=== PATIENT | female | born 1990 | race American Indian/Alaskan Native ===

== ENCOUNTER 2017-01-04 07:43 | Emergency (ER) | payer MEDICAID ==
[2017-01-04] MEDS ORDERED: TYLENOL ONE (09:48)
[2017-01-04] MEDS ORDERED: AUGMENTIN 875 MG PO ONE (10:33)
[2017-01-04] MEDS ORDERED: TYLENOL/CODEINE PO ONE (10:33)
--- NOTE | 2017-01-04 10:34 | Emergency Department Report ---
HPI - General Chief Complaint: Fever Time Seen by Provider: 01/04/17 10:00 - HPI HPI: Patient is a 26-year-old female with no prior medical history who presents to ED complaining of frontal, throbbing, aching headache 1 day. Patient admits associated symptoms as cough, chills, sweating. States last menstrual period as December 14, 2016 and states she has not had no course of the past 2 months She denies nausea/vomiting/abdominal pain/chest pains or shortness of breath ED Past Medical Hx - Past Medical History Previous Medical History?: No - Surgical History Past Surgical History?: No - Social History Smoking Status: Heavy Tobacco Smoker Substance Use Type: Marijuana - Medications Home Medications: Home Medications Medication Instructions Recorded Confirmed Last Taken Type Ibuprofen [Motrin 800 MG tab] 800 mg PO Q8HR PRN #30 tablet 01/04/17 Unknown Rx Sulfamethoxazole/Trimethoprim 1 each PO BID #14 tablet 01/04/17 Unknown Rx [Bactrim DS TAB] ED Review of Systems ROS: Stated complaint: HOT/COLD FLASHES/BONES HURT Other details as noted in HPI Constitutional: denies: chills, fever Eyes: denies: eye pain, eye discharge, vision change ENT: denies: ear pain, throat pain Respiratory: cough. denies: shortness of breath, wheezing Cardiovascular: denies: chest pain, palpitations Endocrine: no symptoms reported, excessive sweating Gastrointestinal: denies: abdominal pain, nausea, diarrhea Genitourinary: denies: urgency, dysuria, discharge Musculoskeletal: myalgia. denies: back pain, joint swelling, arthralgia Skin: denies: rash, lesions Neurological: denies: headache, weakness, paresthesias Psychiatric: denies: anxiety, depression Hematological/Lymphatic: denies: easy bleeding, easy bruising Physical Exam - Physical Exam Vital Signs: Vital Signs 01/04/17 01/04/17 07:58 08:01 Temperature 99.1 F Pulse Rate 108 H Respiratory 19 Rate Blood Pressure 140/75 O2 Sat by Pulse 99 99 Oximetry Physical Exam: GENERAL: Alert and oriented x3, no apparent distress, Normal Gait, atraumatic. HEAD: Head is normocephalic and a-traumatic. EYES: Extra ocular muscles are intact. Pupils are equal, round, and reactive to light and accommodation. EARS: symetrical, atraumatic, non tender, ear canal clear and moderate cerumen, tympanic membrance non inflamed. Serous fluid seen behind tympanic membrane bilaterally ,gross auditory nml bilaterally. NOSE: Nose symetrical, Nontender,Nares appeared normal. Maxillary sinus tenderness to palpation MOUTH:Mouth is well hydrated and without lesions. Tonsils nonerythematous or swollen, Uvula midline, Tongue not elevated. Mucous membranes are moist. Posterior pharynx clear, no exudate or lesions. Patent airways. NECK: Supple. Non edematous, No carotid bruits. No lymphadenopathy or thyromegaly. No C-spine tenderness LUNGS: Symetrical with respiration, No wheezing, no rales or crackles, CTAB. HEART: S1, S2 present, regular rate and rhythm without murmur, no rubs, no gallops. Non tender to palpation EXTREMITIES/MUSCULOSKELETAL: No cyanosis, clubbing, rash, lesions or edema. Full ROM bilaterally. UE/LE Pulses 2+ bilaterally. LE and UE 5+ strength bilat. NEUROLOGIC: The patient is cooperative with no focal neurologic deficits. Cranial nerves II through XII are grossly intact. Normal speech. PSYCHIATRIC: Mood is congruent with affect, denies suicidal or homicidal ideations. SKIN: Warm and dry, No lesions, No ulceration or induration present. ED Course Vital Signs 01/04/17 01/04/17 07:58 08:01 Temperature 99.1 F Pulse Rate 108 H Respiratory 19 Rate Blood Pressure 140/75 O2 Sat by Pulse 99 99 Oximetry ED Medical Decision Making - Medical Decision Making 26-year-old female presents with Urinary tract infection ED course: Patient was medicated in ED with Tylenol, Augmentin, and Tylen/ codeine Urinalysis, UPT ordered. Urinalysis positive for bacteria, UPT negative Discussed this findings with the patient. Discussed the patient take antibiotics as prescribed Discussed patient follow up with primary care physician Vital signs are normal patient is in no acute distress Critical care attestation.: If time is entered above; I have spent that time in minutes in the direct care of this critically ill patient, excluding procedure time. ED Disposition Clinical Impression: UTI (urinary tract infection) Qualifiers: Urinary tract infection type: acute cystitis Hematuria presence: without hematuria Qualified Code(s): N30.00 - Acute cystitis without hematuria Disposition: TO HOME OR SELFCARE Is pt being admited?: No Does the pt Need Aspirin: No Condition: Stable Instructions: Urinary Tract Infection in Women (ED) Prescriptions: Ibuprofen [Motrin 800 MG tab] 800 mg PO Q8HR PRN #30 tablet PRN Reason: Pain Sulfamethoxazole/Trimethoprim [Bactrim DS TAB] 1 each PO BID #14 tablet Referrals: MARIO PHILLIPS MD [Primary Care Provider] - 3-5 Days AKUA PAULINO MD [Referring] - 3-5 Days [facility] [Outside] - 3-[address] [facility] [Outside] - 3-5 Days [facility] [Outside] - 3-5 Days Forms: Work/School Release Form(ED) Time of Disposition: 13:00
[2017-01-04 12:32] LABS: Bacteria,Urine 1+ /HPF (Negative); Bilirubin,Urine NEG (Negative); Blood,Urine SM (Negative); Ketones,Urine NEG (Negative); Leukocyte Esterase,Urine NEG (Negative); Mucus,Urine 2+ /HPF; Nitrite,Urine NEG (Negative)
[2017-01-04 13:22] VITALS: BP 129/71
== END 2017-01-04 13:21 | disposition home or self-care (01) ==
LOC: ED 07:43
DX: N30.00 Acute cystitis without hematuria (principal); F17.200 Nicotine dependence, unspecified, uncomplicated; F12.10 Cannabis abuse, uncomplicated
CPT/HCPCS: 81001; 81025; 99283

== ENCOUNTER 2017-01-05 21:05 | Emergency (ER) | payer MEDICAID ==
[2017-01-05 21:49] LABS: Hematocrit 40.4 % (30.3-42.9); Hemoglobin 13.4 gm/dl (10.1-14.3); Mean Corpuscular HGB Conc 33 % (30-34); Mean Corpuscular Hemoglobin 31 pg (28-32); Mean Corpuscular Volume 93 fl (79-97); Platelet Count 132 K/mm3 (140-440); Red Blood Count 4.36 M/mm3 (3.65-5.03)
[2017-01-05 22:05] LABS: Anion Gap 19 mmol/L; BUN/Creatinine Ratio 11.66; Blood Urea Nitrogen 7 mg/dL (7-17); Calcium 9.3 mg/dL (8.4-10.2); Carbon Dioxide 21 mmol/L (22-30); Chloride 102.3 mmol/L (98-107); Glucose 97 mg/dL (65-100); Potassium 4.2 mmol/L (3.6-5.0); Sodium 138 mmol/L (137-145)
[2017-01-06 00:38] LABS: Bilirubin,Urine NEG (Negative); Blood,Urine SM (Negative); Ketones,Urine 20 mg/dL (Negative); Leukocyte Esterase,Urine NEG (Negative); Mucus,Urine FEW /HPF; Nitrite,Urine NEG (Negative)
[2017-01-06] MEDS ORDERED: TYLENOL PO ONE (03:40)
[2017-01-06] MEDS ORDERED: TYLENOL ONE (03:44)
--- NOTE | 2017-01-06 06:04 | Cat Scan Report ---
FINAL REPORT EXAM: CT HEAD/BRAIN W/O CONTRAST. HISTORY: HEADACHE. TECHNIQUE: Unenhanced axial CT images of the brain were obtained. No prior studies are available for comparison. FINDINGS: The cortical sulci and ventricles are within normal limits for patient's age. There is no extra-axial fluid collection, mass, mass effect, midline shift, hydrocephalus, or acute intracranial hemorrhage. The visualized paranasal sinuses and mastoid air cells are clear. There is no skull fracture or other osseous abnormality. The visualized orbits and globes are grossly unremarkable. IMPRESSION: No acute intracranial abnormality.
--- NOTE | 2017-01-06 07:32 | XRay Report ---
ROUTINE CHEST, TWO VIEWS: HISTORY: Cough, pain. Subtle infiltrate is identified in the lingula. The right lung is clear. No pleural effusion or pneumothorax. Normal heart and mediastinal structures. Normal bony thorax. IMPRESSION: Lingular pneumonia.
[2017-01-06] MEDS ORDERED: ROCEPHIN/NS 1 GM/50 ML 1 GM/50 ML BAG IV ONE (10:40)
[2017-01-06] MEDS ORDERED: TORADOL IV ONE (10:40)
[2017-01-06] MEDS ORDERED: ZOFRAN IV ONE ×2 (10:41→14:37)
[2017-01-06] MEDS ORDERED: MORPHINE IV ONE ×2 (10:41→14:36)
[2017-01-06] MEDS ORDERED: D5NS 1,000 ML IV SCH (11:00)
[2017-01-06] MEDS ORDERED: ZITHROMAX 500 MG in NACL 0.9% 250ML 250 ML IV ONE (11:00)
--- NOTE | 2017-01-06 11:29 | Emergency Department Report ---
ED Fever HPI - General Chief Complaint: Abdominal Pain Stated Complaint: DIZZINESS/WEAK Time Seen by Provider: 01/06/17 10:15 Source: patient Exam Limitations: no limitations - History of Present Illness Initial Comments: 26 year old female with a Past medical history presents to the hospital with fever and myalgias 2-3 days. Patient was seen here 2 days ago for the same patient complains of headache that moves around different parts of her head, sharp, and constant. Patient also complains of generalized body aches, weakness , and fatigue. Patient developed vomiting 4 since yesterday and mild diarrhea. Patient was seen here on the and diagnosed with the UTI and viral syndrome and placed on Tamiflu, ibuprofen, and Bactrim. Patient does not feel any better and therefore returned ED Review of Systems ROS: Stated complaint: DIZZINESS/WEAK Other details as noted in HPI Comment: All other systems reviewed and negative Other: Constitutional:as per hpi Eyes: No eye pain visual changes or discharge ENT: No ear pain or throat pain Neck: Denies pain Respiratory: Occasional cough, no shortness of breath Cardiovascular: Denies chest pain, palpitations, syncope GI: Denies abdominal pain : Denies dysuria Musculoskeletal: Arthralgias Skin: Denies rash Neurologic: + treadwell, no focal weakness Psychiatric: Denies suicidal ideation, hallucinations Hematological/lymphatic: Denies easy bruising, lymphadenopathy ED Past Medical Hx - Social History Smoking Status: Current Every Day Smoker Substance Use Type: None - Medications Home Medications: Home Medications Medication Instructions Recorded Confirmed Last Taken Type Ibuprofen [Motrin 800 MG tab] 800 mg PO Q8HR PRN #30 tablet 01/04/17 Unknown Rx Oseltamivir [Tamiflu] 75 mg PO BID #8 cap 01/04/17 Unknown Rx Sulfamethoxazole/Trimethoprim 1 each PO BID #14 tablet 01/04/17 Unknown Rx [Bactrim DS TAB] HYDROcodone/APAP 5-325 [[place] 1 each PO Q6HR PRN #20 tablet 01/06/17 Unknown Rx 5/325] Levofloxacin [Levaquin] 750 mg PO QDAY #7 tablet 01/06/17 Unknown Rx Promethazine [Phenergan TAB] 25 mg PO Q6HR PRN #20 tab 01/06/17 Unknown Rx ED Physical Exam - General Limitations: No Limitations - Other Other exam information: General: No limitations, patient is alert in no acute distress Head exam: Atraumatic, normocephalic Eyes exam: Normal appearance, pupils equal reactive to light, extraocular movements intact ENT: Moist mucous membrane, normal oropharynx Neck exam: Normal inspection, full range of motion, no meningismus nontender Respiratory exam: Clear to auscultation bilateral, no wheezes, rales, crackles Cardiovascular: Normal rate and rhythm, normal heart sounds Abdomen: Soft, nondistended, and nontender, with normal bowel sounds, no rebound, or guarding Extremity: Full range of motion normal inspection no deformity, no calf tenderness or edema Back: Normal Inspection, full range of motion, no tenderness Neurologic: Alert, oriented x3, cranial nerves intact, no motor or sensory deficit Psychiatric: normal affect, normal mood Skin: Warm, dry, intact ED Course Vital Signs 01/05/17 01/05/17 01/06/17 21:24 21:32 03:37 Temperature 98.4 F 98.4 F 99.3 F Pulse Rate 99 H 99 H 103 H Respiratory 18 18 20 Rate Blood Pressure 119/78 124/73 Blood Pressure 119/78 [Left] O2 Sat by Pulse 99 99 99 Oximetry 01/06/17 01/06/17 06:35 14:19 Temperature 98.4 F 98.6 F Pulse Rate 69 79 Respiratory 16 18 Rate Blood Pressure Blood Pressure 114/62 110/68 [Left] O2 Sat by Pulse 100 100 Oximetry - Reevaluation(s) Reevaluation #1: 01/06/17 11:28 Rocephin, azithromycin, D5NS, Toradol, morphine, and Zofran initiated Reevaluation #2: 01/06/17 14:37 Patient reports feeling better but still has a persistent headache. Additional Dilaudid 0.5 and Zofran IV ordered prior to discharge ED Medical Decision Making - Lab Data Result diagrams: 01/05/17 21:41 01/05/17 21:41 Lab Results 01/05/17 01/05/17 01/05/17 Range/Units 21:41 21:41 23:53 WBC 13.0 H (4.5-11.0) K/mm3 RBC 4.36 (3.65-5.03) M/mm3 Hgb 13.4 (10.1-14.3) gm/dl Hct 40.4 (30.3-42.9) % MCV 93 (79-97) fl MCH 31 (28-32) pg MCHC 33 (30-34) % RDW 13.0 L (13.2-15.2) % Plt Count 132 L (140-440) K/mm3 Sodium 138 (137-145) mmol/L Potassium 4.2 (3.6-5.0) mmol/L Chloride 102.3 (98-107) mmol/L Carbon Dioxide 21 L (22-30) mmol/L Anion Gap 19 mmol/L BUN 7 (7-17) mg/dL Creatinine 0.6 L (0.7-1.2) mg/dL Estimated GFR > 60 ml/min BUN/Creatinine Ratio 11.66 % Glucose 97 (65-100) mg/dL Calcium 9.3 (8.4-10.2) mg/dL Urine Color Yellow (Yellow) Urine Turbidity Clear (Clear) Urine pH 7.0 (5.0-7.0) Ur Specific [place] 1.017 (1.003-1.030) Urine Protein 100 mg/dl (Negative) mg/dL Urine Glucose (UA) Neg (Negative) mg/dL Urine Ketones 20 (Negative) mg/dL Urine Blood Sm (Negative) Urine Nitrite Neg (Negative) Ur Reducing Substances Not Reportable Urine Bilirubin Neg (Negative) Urine Ictotest Not Reportable Urine Urobilinogen 4.0 (<2.0) mg/dL Ur Leukocyte Esterase Neg (Negative) Urine WBC (Auto) 5.0 (0.0-6.0) /HPF Urine RBC (Auto) 40.0 (0.0-6.0) /HPF U Epithel Cells (Auto) 1.0 (0-13.0) /HPF Urine Mucus Few /HPF Urine HCG, Qual Negative (Negative) Influenza negative - EKG Data -: EKG Interpreted by Pa - Radiology Data Radiology results: report reviewed (chest x-ray: lingular infiltrate) - Medical Decision Making Patient had mild dehydration as evident by urine ketosis. Symptoms improved with ED treatment. X-ray reveals left lingual infiltrate. Patient without signs of hypoxia, tachycardia after treatment, or hypotension. Will be discharged with Levaquin and discontinue Bactrim - Differential Diagnosis pneumonia, viral syndrome, UTI Critical Care Time: No Critical care attestation.: If time is entered above; I have spent that time in minutes in the direct care of this critically ill patient, excluding procedure time. ED Disposition Clinical Impression: Left lower lobe pneumonia, Gastroenteritis Disposition: DC- TO HOME OR SELFCARE Is pt being admited?: No Does the pt Need Aspirin: No Condition: Stable Instructions: Community-acquired Pneumonia (ED) Additional Instructions: Take the medication as prescribed. Return is symptoms worsen Prescriptions: HYDROcodone/APAP 5-325 [[place]arden 5/325] 1 each PO Q6HR PRN #20 tablet PRN Reason: Pain Levofloxacin [Levaquin] 750 mg PO QDAY #7 tablet Promethazine [Phenergan TAB] 25 mg PO Q6HR PRN #20 tab PRN Reason: Nausea Referrals: OLIVA SILVA MD [Staff Physician] - 2-3 Days Forms: Work/School Release Form(ED) Time of Disposition: 14:41
[2017-01-06 14:20] VITALS: BP 110/68
[2017-01-06] MEDS ORDERED: DILAUDID IV ONE (14:37)
== END 2017-01-06 16:30 | disposition home or self-care (01) ==
LOC: ED 21:05
DX: J18.9 Pneumonia, unspecified organism (principal); K52.9 Noninfective gastroenteritis and colitis, unspecified; F17.200 Nicotine dependence, unspecified, uncomplicated
CPT/HCPCS: 36415; 70450; 71020; 80048; 81001; 81025; 85027; 87400; 96365; 96367; 96375; 96376; 99284; J0456; J0696; J1170; J1885; J2270; J2405; J7042; J7050